=== PATIENT | male | born 1955 | race Caucasian/White ===

== ENCOUNTER 2017-02-22 23:47 | Inpatient (IN) ==
[2017-02-23] MEDS ORDERED: HYDROmorphone 2 MG/1 ML VIAL IV STA ×2 (00:50→02:23)
[2017-02-23] MEDS ORDERED: ONDANSETRON 4 MG/2 ML VIAL IV STA ×2 (00:51→02:26)
[2017-02-23] MEDS ORDERED: ONDANSETRON 4 MG/2 ML VIAL ONE ×2 (00:57→02:25)
[2017-02-23] MEDS ORDERED: HYDROmorphone 2 MG/1 ML VIAL ONE ×2 (00:58→02:25)
[2017-02-23 01:20] LABS: Basophils # 0.3 10*3/uL (0.0-0.2); Basophils % 1.1 % (0.0-0.8); Eosinophils # 0.5 10*3/uL (0.0-0.87); Eosinophils % 1.7 % (0.00-10.9); Hematocrit 54.1 VOL% (42.0-52.0); Hemoglobin 17.1 GM/DL (14.0-18.0); Immature Granulocytes % 1.3 %; Immature Granulocytes Absolute 0.39 #; Lymphocytes # 2.3 10*3/uL (1.4-4.0); Lymphocytes % 7.8 % (21.2-54.2); Mean Corpuscular HGB Conc 31.6 GM/DL (32-36); Mean Corpuscular Hemoglobin 25 PG (27-34); Mean Corpuscular Volume 79.1 FL (87-102); Mean Platelet Volume 11.7 FL (9.6-12.0); Monocytes # 1.1 10*3/uL (0.11-0.8); Monocytes % 3.7 % (1.7-12.7); NRBC # 0.03 10*3/uL; Neutrophils # 24.8 10*3/uL (1.4-7.4); Neutrophils % 84.4 % (38.7-73.9); Red Blood Count 6.84 MC/CUMM (3.8-5.5); Red Cell Distribution Width 19.5 % (9.3-17.3); White Blood Count 29.4 T/CUMM (4-12)
[2017-02-23 01:25] LABS: Lactic Acid 2.3 MMOL/L (0.4-2.0)
[2017-02-23 01:26] LABS: Albumin 3.6 G/DL (3.4-5.0); Bilirubin,Total 1.6 MG/DL (0.2-1.0); Calcium 9.7 MG/DL (8.5-10.1); Osmolality,Calculated 261.1 MOS/KG (273-304); Potassium 4.7 MMOL/L (3.5-5.1); Total Protein 7.3 G/DL (6.4-8.3)
[2017-02-23] MEDS ORDERED: SODIUM CHLORIDE 0.9% 2,000 ML IV STA (01:36)
[2017-02-23 01:45] LABS: Platelet Count 1337 T/CUMM (130-400)
[2017-02-23 02:05] LABS: Apearance,Urine CLEAR (Clear); Bilirubin,Urine Negative (Negative); Blood, Urine Negative (Negative); Glucose,Urine (UA) Negative (Negative); Ketones,Urine Negative (Negative); Nitrite,Urine Negative (Negative); Protein,Urine Negative; RBC,Urine <1 /HPF (0-4); Squamous Epithelial Cell,Urine Occasional /HPF (0-10); Urine Color Yellow (Yellow); Urine Specific Gravity 1.004 (1.001-1.035); Urine Urobilinogen < 2.0 EU/DL (0.2-1.0); WBC,Urine 2 /HPF (0-6)
[2017-02-23] MEDS ORDERED: metroNIDAZOLE INJ 500 MG in PREMIX 1 EACH IV STA (02:24)
[2017-02-23] MEDS ORDERED: PIPERACILLIN/TAZOBACTAM 2,250 MG in SODIUM CHLORIDE 0.9% 100 ML IV STA (02:24)
[2017-02-23] MEDS ORDERED: ACETAMINOPHEN 325 MG TABLET PO PRN ×2 (02:25→02:34)
[2017-02-23] MEDS ORDERED: ONDANSETRON 4 MG/2 ML VIAL IV PRN ×2 (02:25→13:22)
[2017-02-23] MEDS ORDERED: DEXTROSE 5% LACTATED RINGERS 1,000 ML IV SCH (02:30)
[2017-02-23 02:35] LABS: Band Neutrophils 1 % (0-10); Eosinophils 1 % (0-10); Lymphocytes 6 % (20-55); Platelet Estimate Increased; Segmented Neutrophils 90 % (50-85); Total Cells Counted 100
[2017-02-23] MEDS ORDERED: PIPERACILLIN/TAZOBACTAM 3,375 MG in SODIUM CHLORIDE 0.9% 100 ML IV STA (02:42)
[2017-02-23] MEDS ORDERED: PIPERACILLIN/TAZOBACTAM 3,375 MG VIAL IV ONE (03:01)
[2017-02-23] MEDS ORDERED: SODIUM CHLORIDE 0.9% 100 ML IV ONE (03:01)
[2017-02-23] MEDS ORDERED: metroNIDAZOLE 500 MG/100 ML PREMIX IV ONE (03:03)
[2017-02-23] MEDS: HYDROmorphone 2 MG/1 ML VIAL IV PRN ×3 (06:25→14:49)
--- NOTE | 2017-02-23 06:55 | Ultrasound Report ---
Right upper quadrant ultrasound Indication: Abdominal Pain Findings: The liver is normal in size with diffusely increased echogenicity. The gallbladder has increased density, sludge with suggestion of few calculi. The gallbladder wall thickness is 6.2 mm . The common bile duct measures 3.0 mm. The visualized portion of the pancreas appear within normal limits The right kidney is normal in size and echogenicity and measures 13.2 cm . No free fluid or free air seen. Impression: Fatty liver infiltration. Gallbladder sludge with likely small calculi thickened wall, may indicate cholecystitis. Evidence of abnormality demonstrated. Ultrasound images stored and captured. PROCEDURE INTERPRETED AT [facility] DEPARTMENT OF RADIOLOGY Final Report Signed by: Dr. Gerry Vega
--- NOTE | 2017-02-23 06:59 | CT Report ---
CT chest pulmonary embolism Indication: Chest pain, pleuritic, shortness of breath Comparison: None available Technique: Axial CT imaging of the chest is performed with intravenous contrast. Contrast dose is 80 cc of Omnipaque 350. Findings: No thrombus or other abnormality is identified in the pulmonary arteries or veins. The pulmonary vessel caliber is within normal limits. The heart, mediastinum and great vessels appear within normal limits. There is trace right pleural effusion. There is small amounts of airspace density in both lower lungs slightly greater on the right. Remaining pulmonary parenchyma shows no evidence of airspace disease or abnormal density. No other effusion or pneumothorax is present. Impression: No evidence of pulmonary thromboembolism. Small amounts of basilar lung density to the right greater than left could indicate atelectasis or early pneumonia. Trace right pleural effusion.. This CT exam was performed using one or more the following dose reduction techniques: Automated exposure control, adjustment of the MA and/or KV according to patient size, or use of iterative reconstruction technique. PROCEDURE INTERPRETED AT [facility] DEPARTMENT OF RADIOLOGY Final Report Signed by: Dr. Gerry Vega
--- NOTE | 2017-02-23 07:03 | CT Report ---
CT abdomen pelvis Indication: Abdominal pain, fever chills Comparison: 20 August 2014 Technique: Axial CT imaging of the abdomen and pelvis is performed with intravenous and oral contrast. Contrast dose is 100 cc of Omnipaque 350. Findings: Cardiac and lung bases are within normal limits CT abdomen: The liver spleen pancreas and adrenal glands are normal in size and enhancement. No evidence of focal lesion is demonstrated in these solid organs. Gallbladder wall is thickened Kidneys are normal in size and enhancement. There is bilateral perinephric stranding appear symmetric. No evidence of hydronephrosis or nephrolithiasis is seen. The bowel caliber is normal and no wall thickening or adjacent inflammatory change is seen. No evidence of free fluid or free air is present. Appendix is not identified. CT pelvis: Multiple diverticula are present in the sigmoid colon without evidence of diverticulitis. Otherwise the pelvic bowel appears within normal limits. Bladder shows no evidence of abnormality. The pelvic organs show no evidence of abnormality. Impression: Thickened gallbladder wall, could indicate cholecystitis. This CT exam was performed using one or more the following dose reduction techniques: Automated exposure control, adjustment of the MA and/or KV according to patient size, or use of iterative reconstruction technique. PROCEDURE INTERPRETED AT [facility] DEPARTMENT OF RADIOLOGY Final Report Signed by: Dr. Gerry Vega
[2017-02-23 07:24] LABS: Basophils # 0.2 10*3/uL (0.0-0.2); Basophils % 0.5 % (0.0-0.8); Eosinophils # 0.1 10*3/uL (0.0-0.87); Eosinophils % 0.2 % (0.00-10.9); Hematocrit 51.6 VOL% (42.0-52.0); Hemoglobin 16.2 GM/DL (14.0-18.0); Immature Granulocytes % 1.1 %; Immature Granulocytes Absolute 0.32 #; Lymphocytes # 0.5 10*3/uL (1.4-4.0); Lymphocytes % 1.9 % (21.2-54.2); Mean Corpuscular HGB Conc 31.4 GM/DL (32-36); Mean Corpuscular Hemoglobin 25 PG (27-34); Mean Corpuscular Volume 78.7 FL (87-102); Mean Platelet Volume 11.9 FL (9.6-12.0); Monocytes # 0.7 10*3/uL (0.11-0.8); Monocytes % 2.6 % (1.7-12.7); Neutrophils # 26.2 10*3/uL (1.4-7.4); Neutrophils % 93.7 % (38.7-73.9); Red Blood Count 6.56 MC/CUMM (3.8-5.5); Red Cell Distribution Width 19.1 % (9.3-17.3)
[2017-02-23 07:30] LABS: Platelet Count 1142 T/CUMM (130-400)
[2017-02-23 07:37] LABS: INR 1.2; PT Patient Result 12.4 SECS; Partial Thromboplastin Time 36.2 SECS (0-40)
[2017-02-23 07:49] LABS: Albumin 2.9 G/DL (3.4-5.0); Bilirubin,Total 1.6 MG/DL (0.2-1.0); Calcium 8.5 MG/DL (8.5-10.1); Osmolality,Calculated 263.7 MOS/KG (273-304); Potassium 4.9 MMOL/L (3.5-5.1); Total Protein 6.1 G/DL (6.4-8.3)
[2017-02-23 07:50] LABS: Band Neutrophils 4 % (0-10); Giant Platelets Few; Hypochromasia Slight; Lymphocytes 1 % (20-55); Ovalocytes Slight; Platelet Estimate Increased; Segmented Neutrophils 90 % (50-85); Total Cells Counted 100
--- NOTE | 2017-02-23 08:01 | EKG Report ---
Stationary ECG Study [facility] Test Date: 02/23/2017 7:59:53 AM Pat Name: MITZY SZYMANSKI Department: Room: 339 Gender: M Band Manager: DOLLY : 1955 Requested by: Edward Nuno Order Number: [id number] Reading MD: KUMAR LAZCANO Intervals Leonard Rate: 86 P: 56 WV: 147 QRS: 89 QRSD: 93 T: 16 QT: 359 QTc: 402 Interpretive Statements SINUS RHYTHM Electronically Signed On 02-23-17 14:02:02 CDT by KUMAR LAZCANO [email or web address]
[2017-02-23] MEDS: CIPROFLOXACIN INJ 400 MG in PREMIX 1 EACH IV SCH ×2 (08:21→22:25)
[2017-02-23] MEDS ORDERED: PANTOPRAZOLE 40 MG TABLET PO SCH (09:00)
[2017-02-23] MEDS: metroNIDAZOLE INJ 500 MG in PREMIX 1 EACH IV SCH ×3 (10:22→23:32)
[2017-02-23] MEDS: PIPERACILLIN/TAZOBACTAM 3,375 MG in SODIUM CHLORIDE 0.9% 100 ML IV SCH ×2 (11:51→18:14)
[2017-02-23] MEDS ORDERED: ceFAZolin 2,000 MG in PREMIX 1 EACH IV ONE (13:15)
[2017-02-23] MEDS ORDERED: ENOXAPARIN 40 MG/0.4 ML SYRINGE SUBCUT ONE (13:24)
--- NOTE | 2017-02-23 13:27 | General Surg History&Physical ---
Assessment and Plan - Time spent with patient Time spent with patient: Greater than 30 minutes (1) Cholelithiasis and cholecystitis without obstruction Status: Acute Assessment and plan: Impression: Acute cholecystitis with cholelithiasis and thickened gallbladder wall Plan: Set him up for surgery try to get the gallbladder out. The risk and complications have been discussed with him possibility of an open is a possibility on him and he understands this and is willing to undergo the surgery. We will get Dr. García see him because of his polycythemia vera to be sure that were in good shape there. Current Visit: Yes Qualifiers: Cholelithiasis location: gallbladder (2) Polycythemia vera, acquired Status: Acute Assessment and plan: Impression: Long-standing polycythemia vera Plan: We will have Dr. García evaluate and follow with us in this situation. We will give him some Lovenox for his risk of possible increased clotting problems. Current Visit: Yes History of Present Illness Chief complaint: Abdominal pain right upper quadrant and right back 1 week History of present illness: Mr. Espinosa is a 61 year old male white male who generally has been in pretty good health except the fact that he has polycythemia vera that Dr. García is been following. He had some fried stuff last he had the onset of abdominal pain that was worse when he tried to drive around. Started out initially as in his back. He did take some laxatives and had a big bowel movement felt that was a problem but the pain and discomfort persisted. Ended up going to the [facility] [place] some films were done as well as some labs and they told him they did not know what the pain was from and did not recommend any other further treatment. Because he got so bad he came into the emergency room here last night workup here shows a dilated gallbladder with thickened wall on CT possibly some sludge on ultrasound without clear stones. White count was 29,000 last night and 28,000 this morning following use of antibiotics. Will plan to allow him up for surgery get Dr. García to look at him follow with this with his other problems. Patient's liver function studies have been within normal limits which is good at this time. I have indicated to the patient the problem we are dealing with in fact is going need surgery discussed risk complications associated with that. He seems to understand this and understands need for surgery at this point time. I indicated to him that we would look to try to do it laparoscopically but it may be such a bad gallbladder forces us to do an open known him. He understands that and will can begin line things up for more try to get things and situated for his surgery. Allergies Allergy/AdvReac Type Severity Reaction Status Date / Time No Known Allergies Allergy Unverified 02/23/17 00:03 Medical,Surgical,& Family Hx - Medical History Cardio: History of: Hypertension Endocrine: History of: Thyroid Disorder Hematology: History of: Bleeding Problems (Polycythemia Vera) - Family History Family History: Reports;: Family Cancer (Lung CA- Dad), Family Hypertension ( Paternal Grandfather), Family Stroke (Paternal Grandfather), Additional Family History (Dementia- Mother) - Social History Smoking Status: Unknown if ever smoked Frequency of Alcohol Use: None Type of Drug Use: None Lives With:: Spouse Functional capacity: independent ambulation Exam - Constitutional Vitals: Period Temp Pulse Resp BP Sys/Martin Pulse Ox Last 24 Hr 96.9 F-100.3 F 72-97 16-20 103-132/64-88 92-98 General appearance: mild distress - Head Head exam: Present: normal inspection - ENT ENT exam: Present: normal exam - Neck Neck exam: Present: normal inspection - Respiratory Respiratory exam: Present: clear to auscultation bilaterally, rales - Cardiovascular Cardiovascular exam: Present: RRR - GI/Abdominal GI/Abdominal exam: Present: guarding, hypoactive bowel sounds, Maldonado's sign, tenderness, soft - Extremities Exam Extremities exam: Present: normal inspection - Back Exam Back exam: Present: normal inspection - Neurological Exam Neurological exam: Present: alert, oriented X3, CN II-XII intact - Skin Skin exam: Present: normal color, warm, dry 12 point system: reviewed and no additional remarkable complaints except as stated Quality Measures - VTE Contraindication to Pharmacological VTE Prophylaxis: High Risk of Bleeding Results - Labs CBC & BMP: 02/23/17 06:41 02/23/17 06:41 Lab Results: I have reviewed the past 24 hour labs
[2017-02-23] MEDS: DEXTROSE 5% NACL 0.9% 1,000 ML IV SCH (14:45)
[2017-02-24] MEDS: PIPERACILLIN/TAZOBACTAM 3,375 MG in SODIUM CHLORIDE 0.9% 100 ML IV SCH ×2 (02:03→09:14)
[2017-02-24] MEDS ORDERED: ceFAZolin 2,000 MG in PREMIX 1 EACH IV ONE (06:00)
[2017-02-24] MEDS: DEXTROSE 5% NACL 0.9% 1,000 ML IV SCH ×4 (06:03→15:24)
[2017-02-24] MEDS: metroNIDAZOLE INJ 500 MG in PREMIX 1 EACH IV SCH ×3 (06:03→22:14)
[2017-02-24 06:50] LABS: Basophils # 0.2 10*3/uL (0.0-0.2); Basophils % 0.9 % (0.0-0.8); Eosinophils # 0.2 10*3/uL (0.0-0.87); Eosinophils % 0.7 % (0.00-10.9); Hemoglobin 15.5 GM/DL (14.0-18.0); Immature Granulocytes % 1.2 %; Immature Granulocytes Absolute 0.29 #; Lymphocytes # 0.9 10*3/uL (1.4-4.0); Lymphocytes % 3.5 % (21.2-54.2); Mean Corpuscular HGB Conc 31.6 GM/DL (32-36); Mean Corpuscular Hemoglobin 25 PG (27-34); Mean Corpuscular Volume 78.4 FL (87-102); Mean Platelet Volume 11.5 FL (9.6-12.0); Monocytes # 0.7 10*3/uL (0.11-0.8); Monocytes % 2.7 % (1.7-12.7); NRBC # 0.02 10*3/uL; Neutrophils # 22.9 10*3/uL (1.4-7.4); Platelet Count 953 T/CUMM (130-400); Red Blood Count 6.25 MC/CUMM (3.8-5.5); Red Cell Distribution Width 18.7 % (9.3-17.3); White Blood Count 25.1 T/CUMM (4-12)
[2017-02-24 07:00] LABS: INR 1.4; PT Patient Result 14.6 SECS
[2017-02-24 07:13] LABS: Band Neutrophils 5 % (0-10); Giant Platelets Few; Hypochromasia Slight; Lymphocytes 3 % (20-55); Platelet Estimate Increased; Segmented Neutrophils 92 % (50-85); Total Cells Counted 100
--- NOTE | 2017-02-24 07:28 | Oncology Consult Note ---
History of Present Illness Chief complaint: Polycythemia vera History of present illness: Mr. Espinosa is a 61 year old male I have been following for polycythemia vera. His disorder is Uvaldo 2 positive. He has been undergoing phlebotomies and he has been placed on Jakafi 20 mg daily. I last saw him January 13, 2017 at which time his white cell count was 14,490 and he had a hemoglobin of 16.6. His platelet count was 914,000. He also had hyperuricemia with a hemoglobin of 10.0. The patient was actually being followed by Dr. Rubio and I suggested that he return to see him. 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 Recently he has been having GI symptoms including signs and symptoms of cholecystitis and he has documented thickening of the gallbladder. Past medical history: No known allergies. Past medical history is positive for polycythemia, splenomegaly, hypertension, tachycardia, hypothyroidism, insomnia and anxiety. Family history is positive for lung cancer in his father and coronary artery disease in his grandfather Social history: He has never smoked. Review of systems: Positive review of systems includes the following: Constitutional: Positive for to fatigue Endocrine: The patient has had hyperkalemia but he was dehydrated at that time. Integumentary: The patient has been treated for folliculitis or cellulitis of his right knee and apparently had lymphangitis. Musculoskeletal: Positive for arthritis in his knees with knee pain and an apparent infection of his right knee, possibly with a joint effusion. Also positive for gout. However, the patient tells me now that his knees are no longer bothering him. GI: See present illness. Review of systems is otherwise negative. Physical examination: General: The patient is relatively well-developed well-nourished and in no acute distress. Eyes: Normal lids and conjunctivae. ENT: He appears to have some stomatitis but there are no exudates of the tongue or pharynx. Dentition is not good. His hearing appears normal. Neck: His trachea is midline. He has no neck masses. His thyroid is normal. Lungs: His chest moves symmetrically with respiration and there is no tenderness. Breath sounds are slightly coarse throughout.There are no rubs, rales or rhonchi. Cardiovascular: His heart rhythm is regular without murmur, gallop or rub. There is no jugular venous distention, clubbing, cyanosis or edema. Abdomen: Hypoactive bowel sounds. He is tender in the right upper quadrant. I cannot palpate his spleen. Musculoskeletal: There is no focal muscle atrophy or bone or joint deformity. Neurologic: Cranial nerves II through XII are intact. There are no focal neurologic deficits. Nodes: There is no submental, submandibular, cervical, supraclavicular or axillary adenopathy. Skin: I see no significant skin lesions or rashes. Psychiatric: The patient is oriented to time, place, person and situation. Impression: The patient has Uvaldo 2 positive polycythemia vera. He is on Jakafi which can be held temporarily for surgery and resumed after he is no longer n.p.o. I will follow him with you. Thank you for consulting me. We need CBCs and not simply H&H is on this patient when we checked these. Allergies Allergy/AdvReac Type Severity Reaction Status Date / Time No Known Allergies Allergy Unverified 02/23/17 00:03 Medical,Surgical,& Family Hx - Medical History Cardio: History of: Hypertension Endocrine: History of: Thyroid Disorder Hematology: History of: Bleeding Problems (Polycythemia Vera) - Family History Family History: Reports;: Family Cancer (Lung CA- Dad), Family Hypertension ( Paternal Grandfather), Family Stroke (Paternal Grandfather), Additional Family History (Dementia- Mother) - Social History Smoking Status: Unknown if ever smoked Frequency of Alcohol Use: None Type of Drug Use: None Exam - Constitutional Vitals: Period Temp Pulse Resp BP Sys/Martin Pulse Ox Last 24 Hr 96.9 F-98.9 F 56-93 18-20 101-122/57-69 92-96 Results - Labs CBC & BMP: 02/24/17 06:22 02/24/17 06:22 Quality Measures - VTE Contraindication to Pharmacological VTE Prophylaxis: High Risk of Bleeding
[2017-02-24 07:32] LABS: Albumin 2.7 G/DL (3.4-5.0); Bilirubin,Total 2.1 MG/DL (0.2-1.0); Calcium 8.6 MG/DL (8.5-10.1); Osmolality,Calculated 266.2 MOS/KG (273-304); Potassium 4.8 MMOL/L (3.5-5.1); Total Protein 5.7 G/DL (6.4-8.3)
[2017-02-24] MEDS: CIPROFLOXACIN INJ 400 MG in PREMIX 1 EACH IV SCH ×2 (08:06→23:28)
[2017-02-24] MEDS: HYDROmorphone 2 MG/1 ML VIAL IV PRN ×4 (11:28→22:14)
[2017-02-24] MEDS ORDERED: LIDOCAINE 1%/EPI INJ 20 ML VIAL ONE (15:46)
[2017-02-24] MEDS ORDERED: TISSUE ADHESIVE 1 EACH APPLICATOR TOP ONE (15:46)
[2017-02-24 18:35] LABS: Apearance,Urine CLEAR (Clear); Bacteria,Urine Occasional /HPF (Few); Bilirubin,Urine Negative (Negative); Blood, Urine Negative (Negative); Glucose,Urine (UA) Negative (Negative); Ketones,Urine 20 mg/dL (Negative); Mucus,Urine Occasional /LPF (Occasional); Nitrite,Urine Negative (Negative); Protein,Urine 30 MG/DL; RBC,Urine 3 /HPF (0-4); Squamous Epithelial Cell,Urine Occasional /HPF (0-10); Urine Specific Gravity 1.023 (1.001-1.035); Urine Urobilinogen < 2.0 EU/DL (0.2-1.0); WBC,Urine 3 /HPF (0-6)
[2017-02-24 18:36] LABS: Urine Color Dark yellow (Yellow)
--- NOTE | 2017-02-24 18:42 | Operative Note ---
Date of procedure: 02/24/17 Pre-op diagnosis: Acute cholecystitis with cholelithiasis. Post-op diagnosis: same Procedure: Operative note: Preoperative diagnosis: Acute cholecystitis cholelithiasis. Postoperative diagnosis: Same Procedure: Laparoscopic cholecystectomy Surgeon Dr. Nuno Food And Beverage Assistant Candace Andrew, URGENT CARE PHYSICIAN ASSISTANT ACNP Anesthesia General tracheal. With local Brief history: 61-year-old white male with onset of abdominal pain for about a week right upper quadrant radiation to his back with good bit of discomfort especially when he moves around. Came in with elevated white count but the patient also has polycythemia vera that Dr. García is been following. We put him on IV fluids and IV antibiotics like to bring the surgery at this time to get this area out since his CT scan showed thickened dilated gallbladder and ultrasound was primarily related to sludge. Liver function studies were essentially normal. Procedure: With patient prepped and draped in a sterile fashion timeout and antibiotics completed approaches area of the abdomen. Like to go above the umbilicus where we infiltrated local anesthetic. Made incision through the skin subtenons tissue carefully dissected down to the fascia and incised that with a knife. Easily enter the peritoneal cavity under direct vision placed a 11 mm trocar in and instilled 3 L of CO2 in the abdomen. Put her scope in what we saw was adhesions stuck up to the anterior abdominal wall at the level of the gallbladder make it difficult to get a clear window to put the other trochars N. I was able go ahead and put in the epigastric 11 mm trocar under direct vision without problems. I then was able take the dissector and suite the adhesions and the inflammatory process away from the abdominal wall. This they gave us a window to put in the other 5 mm trochars at the anterior axillary midclavicular line. There was some purulent material where this omentum had been stuck to the gallbladder and we cultured some of that took some tissue out for culture also. Once we did that we could see the gallbladder was inflamed at the top and taken all way through. I was able to get a grasper onto the gallbladder and lifted up and had the peel-away large amount of thickened omental tissue away from the underside of the gallbladder including portion of the colon. This allowed me get to the infundibulum were grasped and lifted it up. The area of the ducts were thickened at this time had to do some careful dissection in order care determine where the ducts were. I was finally able to get into the area of the cystic duct and begin to get a little dissection around the underside of it. Unfortunately the gallbladder tore had some spillage of bile and large number of stones we had to suck out at this time. I was able get control again and working this area. I want to get a cholangiogram but could never get a good clear window towards the cystic duct at this point. I could not tell good length of it at this time to the inflammation. I was able to get around to my normal medium clips would not go across this. At that point I had put a 12 mm trocar in the epigastric area and use large clips to get across the cystic duct be sure that I was completely across it and fired it. I did not think I can safely do a cholangiogram at this point. I could clearly see the cystic duct that we had divided with the scissors at this time. With that completed then I was able dissected out the cystic artery and placed 3 clips across it proximally and then 1 clip distally. I then divided the the artery. I then begin to take the gallbladder out by incising peritoneal attachments anteriorly and posteriorly but it was thickened and hard to get out of the liver bed at this time. We were able to slowly dissected out with a little bit of a liver injury at the upper part. Once I had it completely free from the liver I was able put it in an Endo Catch bag and bring it out through the umbilical port. Once a gallbladder out went back in washed and cleaned out above and below the liver and use light cording for controlling bleeding. At that point I felt is important to the amount of inflammation to leave a drain in this area. We put a #10 Nishant-Rodriguez laid on the liver brought out through the lateral port. With that I then removed our other trochars and I closed the epigastric port interrupted 0 Monocryl suture we closed the umbilical port with interrupted 0 Monocryl suture. With those closed we then closed the subtenons tissue with 3-0 Vicryl with skin clips in the skin and secured the drain with 3-0 nylon. Patient was taken recovery room. Estimated blood loss 30 cc Sponge count correct 2 Drains one #10 Nishant-Rodriguez Complications none Condition stable satisfactory Anesthesia: GETA, local (0.25% Marcaine mixed [id number] 1% Xylocaine plain) Surgeon / Physician: Edward Nuno Food And Beverage Assistant: Candace Andrew Estimated blood loss: other (30 cc) Specimens: other (Peritoneal fluid culture and gallbladder) Condition: stable Disposition: floor Results - Labs CBC & BMP: 02/24/17 06:22 02/24/17 06:22
--- NOTE | 2017-02-24 18:48 | Anesthesia Post-Op ---
Anesthesia Post OP - Post Ansesthetic Evaluation Patient seen in post op: Yes Resp: within normal limits CV: within normal limits Mental: within normal limits Temp: within normal limits [id number]: within normal limits Nausea and Vomiting: within normal limits Pain: within normal limits
[2017-02-24] MEDS ORDERED: SEVOFLURANE 1 UNIT/15 MINUTE INH ONE (18:51)
[2017-02-24] MEDS ORDERED: PROPOFOL 200 MG/20 ML VIAL IV ONE (18:51)
[2017-02-24] MEDS ORDERED: NEOSTIGMINE 10 MG/10 ML VIAL ONE (18:52)
[2017-02-24] MEDS ORDERED: fentaNYL 100 MCG/2 ML VIAL ONE (18:52)
[2017-02-24] MEDS ORDERED: ROCURONIUM 100 MG/10 ML VIAL IV ONE (18:52)
[2017-02-24] MEDS ORDERED: GLYCOPYRROLATE 0.4 MG/2 ML VIAL ONE (18:52)
[2017-02-24] MEDS ORDERED: MIDAZOLAM 2 MG/2 ML VIAL ONE (18:52)
[2017-02-24] MEDS ORDERED: KETOROLAC 30 MG/1 ML VIAL ONE (18:52)
[2017-02-24] MEDS ORDERED: LACTATED RINGERS 1,000 ML IV ONE (18:52)
[2017-02-24] MEDS: KETOROLAC 15 MG/1 ML VIAL IV SCH (20:47)
[2017-02-24] MEDS: ALUMINUM/MAGNES/SIMETH MAX STR 30 ML UDCUP PO PRN (20:48)
[2017-02-24 21:42] LABS: Hematocrit 48.7 VOL% (42.0-52.0); Hemoglobin 15.3 GM/DL (14.0-18.0)
[2017-02-25] MEDS: ceFAZolin 2,000 MG in PREMIX 1 EACH IV SCH ×2 (00:35→08:00)
[2017-02-25] MEDS: DEXTROSE 5% NACL 0.9% 1,000 ML IV SCH ×4 (00:35→18:00)
[2017-02-25] MEDS: KETOROLAC 15 MG/1 ML VIAL IV SCH ×5 (00:38→23:41)
[2017-02-25] MEDS: PIPERACILLIN/TAZOBACTAM 3,375 MG in SODIUM CHLORIDE 0.9% 100 ML IV SCH ×3 (01:56→16:44)
[2017-02-25] MEDS: HYDROmorphone 2 MG/1 ML VIAL IV PRN ×5 (02:03→21:13)
[2017-02-25 05:43] LABS: Basophils # 0.1 10*3/uL (0.0-0.2); Basophils % 0.6 % (0.0-0.8); Eosinophils % 0.2 % (0.00-10.9); Hematocrit 47.2 VOL% (42.0-52.0); Hemoglobin 14.7 GM/DL (14.0-18.0); Immature Granulocytes % 1.7 %; Immature Granulocytes Absolute 0.37 #; Lymphocytes # 0.8 10*3/uL (1.4-4.0); Lymphocytes % 3.7 % (21.2-54.2); Mean Corpuscular HGB Conc 31.1 GM/DL (32-36); Mean Corpuscular Hemoglobin 25 PG (27-34); Mean Corpuscular Volume 79.2 FL (87-102); Mean Platelet Volume 11.4 FL (9.6-12.0); Monocytes # 0.6 10*3/uL (0.11-0.8); Monocytes % 2.9 % (1.7-12.7); Neutrophils % 90.9 % (38.7-73.9); Platelet Count 927 T/CUMM (130-400); Red Blood Count 5.96 MC/CUMM (3.8-5.5); Red Cell Distribution Width 18.6 % (9.3-17.3)
[2017-02-25] MEDS: metroNIDAZOLE INJ 500 MG in PREMIX 1 EACH IV SCH ×5 (06:11→23:41)
[2017-02-25 06:12] LABS: Albumin 2.3 G/DL (3.4-5.0); Bilirubin,Total 1.1 MG/DL (0.2-1.0); Calcium 7.8 MG/DL (8.5-10.1); Total Protein 5.1 G/DL (6.4-8.3)
[2017-02-25 06:13] LABS: Osmolality,Calculated 269.1 MOS/KG (273-304); Potassium 4.4 MMOL/L (3.5-5.1)
[2017-02-25 06:21] LABS: Band Neutrophils 4 % (0-10); Hypochromasia 1+; Lymphocytes 6 % (20-55); Platelet Estimate Increased; Polychromasia Slight; Segmented Neutrophils 84 % (50-85); Total Cells Counted 100
[2017-02-25] MEDS: ALUMINUM/MAGNES/SIMETH MAX STR 30 ML UDCUP PO PRN (06:29)
[2017-02-25] MEDS ORDERED: ENOXAPARIN 40 MG/0.4 ML SYRINGE ONE (07:16)
[2017-02-25] MEDS: ENOXAPARIN 40 MG/0.4 ML SYRINGE SUBCUT SCH (07:59)
[2017-02-25] MEDS: PANTOPRAZOLE 40 MG TABLET PO SCH (07:59)
--- NOTE | 2017-02-25 09:12 | Oncology Progress Note ---
Oncology Subjective PN Interval history: Mr. kapoor underwent cholecystectomy yesterday. Lab work today includes a white cell count of 22,000 with a hemoglobin of 14.7 and a platelet count that is down to 927,000. His comprehensive metabolic profile includes a bilirubin has dropped to 1.1 today. From my standpoint he can go home anytime now and should return to the care of Dr. Rubio. I have instructed him to resume Jakafi on discharge. I will sign off. Thanks. Exam - Constitutional Vitals: Period Temp Pulse Resp BP Sys/Martin Pulse Ox Last 24 Hr 97.9 F-100.3 F 72-94 16-20 120-166/68-98 91-99 Results - Labs CBC & BMP: 02/25/17 04:59 02/25/17 04:59 Quality Measures - VTE Contraindication to Pharmacological VTE Prophylaxis: High Risk of Bleeding
--- NOTE | 2017-02-25 09:29 | General Surgery Progress Note ---
Assessment and Plan - Time spent with patient Time spent with patient: Less than 30 minutes (1) Cholelithiasis and cholecystitis without obstruction Status: Acute Assessment and plan: Impression: Acute cholecystitis with cholelithiasis and thickened gallbladder wall Plan: Set him up for surgery try to get the gallbladder out. The risk and complications have been discussed with him possibility of an open is a possibility on him and he understands this and is willing to undergo the surgery. We will get Dr. García see him because of his polycythemia vera to be sure that were in good shape there. 02/25/2017 Patient is now postop from his cholecystectomy which was a difficult removal with some tearing of the gallbladder and spillage of bile contents. He is generally doing fairly well his white count is down 22,000 and is crits 43 today. As of the labs looking good shape at this point. He is having little distention and discomfort associated probably with irritation from the bile spillage. EFFIE drainage is decreasing and looks in good shape at this point. He is not able to eat at this time is tolerating some liquids. Will get him moving and try to get him more functional and see if this will improve the bowel function at this time. Have cultures pending on what we got out of the abdomen at this point time and the drainage though is decreasing will probably have to remain another 2-3 days. Current Visit: Yes Qualifiers: Cholelithiasis location: gallbladder (2) Polycythemia vera, acquired Status: Acute Assessment and plan: Impression: Long-standing polycythemia vera Plan: We will have Dr. García evaluate and follow with us in this situation. We will give him some Lovenox for his risk of possible increased clotting problems. Current Visit: Yes Subjective Patient reports: Present: feels better, tolerating liquids well, no bowel movement, afebrile, other (Has a little problem with some distention.) Exam - Constitutional Vitals: Period Temp Pulse Resp BP Sys/Martni Pulse Ox Last 24 Hr 97.9 F-100.3 F 72-94 16-20 120-166/68-98 91-99 General appearance: mild distress - Head Head exam: Present: normal inspection - ENT ENT exam: Present: normal exam - Neck Neck exam: Present: normal inspection - Respiratory Respiratory exam: Present: rales, rhonchi - Cardiovascular Cardiovascular exam: Present: RRR - GI/Abdominal GI/Abdominal exam: Present: distended, hypoactive bowel sounds, tenderness ( Mild diffuse discomfort) - Extremities Exam Extremities exam: Present: normal inspection - Back Exam Back exam: Present: normal inspection - Neurological Exam Neurological exam: Present: alert, oriented X3, CN II-XII intact - Skin Skin exam: Present: normal color, warm, dry Results - Labs CBC & BMP: 02/25/17 04:59 02/25/17 04:59 Lab Results: I have reviewed the past 24 hour labs Quality Measures - VTE Contraindication to Pharmacological VTE Prophylaxis: High Risk of Bleeding
[2017-02-25] MEDS: CIPROFLOXACIN INJ 400 MG in PREMIX 1 EACH IV SCH (11:57)
[2017-02-25] MEDS: NYSTATIN 500,000 UNIT/5 ML UDCUP SWISH/SWAL PRN ×2 (12:16→16:44)
[2017-02-25] MEDS: METHOCARBAMOL 500 MG TABLET PO SCH (20:43)
[2017-02-26] MEDS: PIPERACILLIN/TAZOBACTAM 3,375 MG in SODIUM CHLORIDE 0.9% 100 ML IV SCH ×3 (00:48→16:19)
[2017-02-26] MEDS: HYDROmorphone 2 MG/1 ML VIAL IV PRN (04:36)
[2017-02-26] MEDS: DEXTROSE 5% NACL 0.9% 1,000 ML IV SCH ×4 (04:38→16:19)
[2017-02-26 05:17] LABS: Basophils # 0.1 10*3/uL (0.0-0.2); Basophils % 0.8 % (0.0-0.8); Eosinophils # 0.3 10*3/uL (0.0-0.87); Eosinophils % 1.7 % (0.00-10.9); Hematocrit 46.1 VOL% (42.0-52.0); Hemoglobin 14.7 GM/DL (14.0-18.0); Immature Granulocytes Absolute 0.36 #; Lymphocytes # 0.8 10*3/uL (1.4-4.0); Lymphocytes % 4.6 % (21.2-54.2); Mean Corpuscular HGB Conc 31.9 GM/DL (32-36); Mean Corpuscular Hemoglobin 25 PG (27-34); Mean Corpuscular Volume 78.8 FL (87-102); Mean Platelet Volume 11.2 FL (9.6-12.0); Monocytes # 0.7 10*3/uL (0.11-0.8); Monocytes % 3.7 % (1.7-12.7); NRBC # 0.03 10*3/uL; Neutrophils # 15.7 10*3/uL (1.4-7.4); Neutrophils % 87.2 % (38.7-73.9); Platelet Count 865 T/CUMM (130-400); Red Blood Count 5.85 MC/CUMM (3.8-5.5); Red Cell Distribution Width 18.8 % (9.3-17.3)
[2017-02-26 05:51] LABS: Albumin 2.2 G/DL (3.4-5.0); Bilirubin,Total 1.4 MG/DL (0.2-1.0); Calcium 8.1 MG/DL (8.5-10.1); Osmolality,Calculated 268.1 MOS/KG (273-304); Potassium 4.4 MMOL/L (3.5-5.1); Total Protein 4.8 G/DL (6.4-8.3)
[2017-02-26 06:15] LABS: Band Neutrophils 5 % (0-10); Hypochromasia 1+; Lymphocytes 3 % (20-55); Microcytosis 1+; Nucleated Red Blood Cells 1 (0-5); Platelet Estimate Increased; Segmented Neutrophils 85 % (50-85); Total Cells Counted 100
[2017-02-26] MEDS: LEVOTHYROXINE 75 MCG TABLET PO SCH (06:23)
[2017-02-26] MEDS: metroNIDAZOLE INJ 500 MG in PREMIX 1 EACH IV SCH ×4 (06:24→23:58)
[2017-02-26] MEDS: KETOROLAC 15 MG/1 ML VIAL IV SCH ×4 (06:24→23:58)
[2017-02-26] MEDS: LISINOPRIL/HCTZ 20-12.5 MG TABLET PO SCH (08:37)
[2017-02-26] MEDS: METHOCARBAMOL 500 MG TABLET PO SCH ×2 (08:37→21:20)
[2017-02-26] MEDS: PANTOPRAZOLE 40 MG TABLET PO SCH (08:37)
[2017-02-26] MEDS: ENOXAPARIN 40 MG/0.4 ML SYRINGE SUBCUT SCH (08:38)
--- NOTE | 2017-02-26 11:01 | General Surgery Progress Note ---
Assessment and Plan - Time spent with patient Time spent with patient: Less than 30 minutes (1) Cholelithiasis and cholecystitis without obstruction Status: Acute Assessment and plan: 02/26/17 Stable post op laparoscopic cholecystectomy. We will plan to continue antibiotics today and have him ambulate in the halls. If he continues to do well consider removing the EFFIE drain and discharge tomorrow. Current Visit: Yes Qualifiers: Cholelithiasis location: gallbladder (2) Polycythemia vera, acquired Status: Acute Assessment and plan: 02/26/17 Polycythemia vera, stable. Platelets now 865. Appreciate Dr García's recommendations. Continue Lovenox while here. We'll have him resume his previous meds upon d/c. Current Visit: Yes Subjective Patient reports: Present: feels better, pain is less, tolerating a regular diet , bowel movement. Absent: nausea, vomiting, shortness of breath Exam - Constitutional Vitals: Period Temp Pulse Resp BP Sys/Martin Pulse Ox Last 24 Hr 97.0 F-99.3 F 77-100 16-20 109-140/60-80 95-97 General appearance: no acute distress - Respiratory Respiratory exam: Present: clear to auscultation bilaterally - Cardiovascular Cardiovascular exam: Present: RRR - GI/Abdominal GI/Abdominal exam: Present: hypoactive bowel sounds, other (Incisions clean and dry without unusual redness or drainage. ) Results - Labs CBC & BMP: 02/26/17 04:51 02/26/17 04:51 Lab Results: I have reviewed the past 24 hour labs Quality Measures - VTE Contraindication to Pharmacological VTE Prophylaxis: High Risk of Bleeding
[2017-02-27] MEDS: PIPERACILLIN/TAZOBACTAM 3,375 MG in SODIUM CHLORIDE 0.9% 100 ML IV SCH ×3 (01:19→16:02)
[2017-02-27 02:30] LABS: Basophils # 0.1 10*3/uL (0.0-0.2); Basophils % 0.8 % (0.0-0.8); Eosinophils # 0.4 10*3/uL (0.0-0.87); Eosinophils % 2.9 % (0.00-10.9); Hematocrit 44.2 VOL% (42.0-52.0); Hemoglobin 13.4 GM/DL (14.0-18.0); Immature Granulocytes % 2.9 %; Immature Granulocytes Absolute 0.43 #; Lymphocytes % 7.1 % (21.2-54.2); Mean Corpuscular HGB Conc 30.3 GM/DL (32-36); Mean Corpuscular Hemoglobin 24 PG (27-34); Mean Corpuscular Volume 79.4 FL (87-102); Mean Platelet Volume 11.3 FL (9.6-12.0); Monocytes # 0.6 10*3/uL (0.11-0.8); Monocytes % 4.3 % (1.7-12.7); NRBC # 0.02 10*3/uL; Neutrophils # 12.1 10*3/uL (1.4-7.4); Platelet Count 882 T/CUMM (130-400); Red Blood Count 5.57 MC/CUMM (3.8-5.5); Red Cell Distribution Width 18.6 % (9.3-17.3); White Blood Count 14.7 T/CUMM (4-12)
[2017-02-27 02:55] LABS: Albumin 2.1 G/DL (3.4-5.0); Bilirubin,Total 1.2 MG/DL (0.2-1.0); Calcium 7.7 MG/DL (8.5-10.1); Osmolality,Calculated 272.7 MOS/KG (273-304); Potassium 4.1 MMOL/L (3.5-5.1); Total Protein 4.6 G/DL (6.4-8.3)
[2017-02-27 06:03] LABS: Band Neutrophils 5 % (0-10); Eosinophils 1 % (0-10); Lymphocytes 8 % (20-55); Platelet Estimate Increased; Segmented Neutrophils 81 % (50-85); Total Cells Counted 100
[2017-02-27] MEDS: metroNIDAZOLE INJ 500 MG in PREMIX 1 EACH IV SCH ×4 (06:25→23:57)
[2017-02-27] MEDS: KETOROLAC 15 MG/1 ML VIAL IV SCH ×2 (06:25→11:29)
[2017-02-27] MEDS: LEVOTHYROXINE 75 MCG TABLET PO SCH (06:25)
[2017-02-27] MEDS: DEXTROSE 5% NACL 0.9% 1,000 ML IV SCH ×4 (07:33→21:10)
[2017-02-27] MEDS: PANTOPRAZOLE 40 MG TABLET PO SCH (08:21)
[2017-02-27] MEDS: LISINOPRIL/HCTZ 20-12.5 MG TABLET PO SCH (08:21)
[2017-02-27] MEDS: METHOCARBAMOL 500 MG TABLET PO SCH ×2 (08:21→21:10)
[2017-02-27] MEDS: ENOXAPARIN 40 MG/0.4 ML SYRINGE SUBCUT SCH (08:21)
--- NOTE | 2017-02-27 14:09 | General Surgery Progress Note ---
Assessment and Plan (1) Cholelithiasis and cholecystitis without obstruction Status: Acute Assessment and plan: Impression: Acute cholecystitis with cholelithiasis and thickened gallbladder wall Plan: Set him up for surgery try to get the gallbladder out. The risk and complications have been discussed with him possibility of an open is a possibility on him and he understands this and is willing to undergo the surgery. We will get Dr. García see him because of his polycythemia vera to be sure that were in good shape there. 02/25/2017 Patient is now postop from his cholecystectomy which was a difficult removal with some tearing of the gallbladder and spillage of bile contents. He is generally doing fairly well his white count is down 22,000 and is crits 43 today. As of the labs looking good shape at this point. He is having little distention and discomfort associated probably with irritation from the bile spillage. EFFIE drainage is decreasing and looks in good shape at this point. He is not able to eat at this time is tolerating some liquids. Will get him moving and try to get him more functional and see if this will improve the bowel function at this time. Have cultures pending on what we got out of the abdomen at this point time and the drainage though is decreasing will probably have to remain another 2-3 days. 02/27/2017 Patient generally looks pretty good although had a low-grade temp last night about 100.2. His abdomen looks soft mildly distended hypoactive bowel sounds present. He describes having several bowel movements. His. He has been tolerating some solid food at this time. So far he seems to be progressing nicely white count coming down hematocrit being 43. I would like to keep him another 24 hours get a chest x-ray just because of the low-grade temperatures and I do worry things are coming from at this time. EFFIE drainage is decreasing although it still has some periods where it seems like a fairly good amount of drainage of the straw-colored nature. Will pull the drain before he leaves but keep him tonight and recheck things in the morning see if he is any improvement there and see what his symptoms basically do at this time. Current Visit: Yes Qualifiers: Cholelithiasis location: gallbladder (2) Polycythemia vera, acquired Status: Acute Assessment and plan: Impression: Long-standing polycythemia vera Plan: We will have Dr. García evaluate and follow with us in this situation. We will give him some Lovenox for his risk of possible increased clotting problems. Current Visit: Yes Subjective Patient reports: Present: no new complaints, pain is less, bowel movement, afebrile, fever (Low-grade temp of 100 in the night.) Exam - Constitutional Vitals: Period Temp Pulse Resp BP Sys/Martin Pulse Ox Last 24 Hr 97.6 F-100.0 F 66-80 16-20 102-138/63-73 96-99 General appearance: mild distress - Head Head exam: Present: normal inspection - ENT ENT exam: Present: normal exam - Neck Neck exam: Present: normal inspection - Respiratory Respiratory exam: Present: rales - Cardiovascular Cardiovascular exam: Present: RRR - GI/Abdominal GI/Abdominal exam: Present: hypoactive bowel sounds, soft, other (Incisions clean and dry) - Extremities Exam Extremities exam: Present: normal inspection - Back Exam Back exam: Present: normal inspection - Neurological Exam Neurological exam: Present: alert, oriented X3, altered Results - Labs CBC & BMP: 02/27/17 01:19 02/27/17 01:19 Lab Results: I have reviewed the past 24 hour labs Quality Measures - VTE Contraindication to Pharmacological VTE Prophylaxis: High Risk of Bleeding
--- NOTE | 2017-02-27 16:50 | XRay Report ---
Portable chest Date: 02/27/2017 Clinical history: Post cholecystectomy with fever Comparison: 08/16/2014 Technique: Portable AP sitting chest Findings: The heart is normal in size with uncoiling of the aorta. Minimal relative elevation of the right hemidiaphragm. Progressive atelectasis/infiltration at the lung bases with small pleural effusions. Stable mediastinum with degenerative changes. Impression: Bibasilar atelectasis/infiltration with small pleural effusions. Findings are more pronounced at the right lung base. PROCEDURE INTERPRETED AT [facility] [place] DEPARTMENT OF RADIOLOGY Final Report Signed by: Dr. Spring Gould
[2017-02-28] MEDS: PIPERACILLIN/TAZOBACTAM 3,375 MG in SODIUM CHLORIDE 0.9% 100 ML IV SCH ×3 (01:15→16:57)
[2017-02-28 03:15] LABS: Basophils # 0.2 10*3/uL (0.0-0.2); Basophils % 1.1 % (0.0-0.8); Eosinophils # 0.4 10*3/uL (0.0-0.87); Eosinophils % 2.7 % (0.00-10.9); Hematocrit 43.1 VOL% (42.0-52.0); Hemoglobin 13.3 GM/DL (14.0-18.0); Immature Granulocytes % 4.8 %; Immature Granulocytes Absolute 0.72 #; Lymphocytes # 1.2 10*3/uL (1.4-4.0); Lymphocytes % 8.2 % (21.2-54.2); Mean Corpuscular HGB Conc 30.9 GM/DL (32-36); Mean Corpuscular Hemoglobin 24 PG (27-34); Mean Corpuscular Volume 78.9 FL (87-102); Mean Platelet Volume 11.5 FL (9.6-12.0); Monocytes # 0.6 10*3/uL (0.11-0.8); Monocytes % 4.1 % (1.7-12.7); NRBC # 0.04 10*3/uL; Neutrophils % 79.1 % (38.7-73.9); Platelet Count 981 T/CUMM (130-400); Red Blood Count 5.46 MC/CUMM (3.8-5.5); Red Cell Distribution Width 18.2 % (9.3-17.3); White Blood Count 15.1 T/CUMM (4-12)
[2017-02-28 03:48] LABS: Albumin 2.2 G/DL (3.4-5.0); Bilirubin,Total 0.9 MG/DL (0.2-1.0); Calcium 7.8 MG/DL (8.5-10.1); Osmolality,Calculated 270.7 MOS/KG (273-304); Potassium 4.1 MMOL/L (3.5-5.1); Total Protein 4.7 G/DL (6.4-8.3)
[2017-02-28 04:04] LABS: Band Neutrophils 8 % (0-10); Eosinophils 1 % (0-10); Lymphocytes 11 % (20-55); Total Cells Counted 100
[2017-02-28 04:07] LABS: Platelet Estimate Increased; Polychromasia Few
[2017-02-28 04:09] LABS: Segmented Neutrophils 74 % (50-85)
[2017-02-28] MEDS: metroNIDAZOLE INJ 500 MG in PREMIX 1 EACH IV SCH ×2 (06:04→13:10)
[2017-02-28] MEDS: LEVOTHYROXINE 75 MCG TABLET PO SCH (06:04)
[2017-02-28] MEDS: DEXTROSE 5% NACL 0.9% 1,000 ML IV SCH ×3 (07:50→14:31)
[2017-02-28] MEDS: PANTOPRAZOLE 40 MG TABLET PO SCH (08:43)
[2017-02-28] MEDS: ENOXAPARIN 40 MG/0.4 ML SYRINGE SUBCUT SCH (08:43)
[2017-02-28] MEDS: METHOCARBAMOL 500 MG TABLET PO SCH ×2 (08:43→21:03)
[2017-02-28] MEDS: LISINOPRIL/HCTZ 20-12.5 MG TABLET PO SCH (08:43)
--- NOTE | 2017-02-28 09:54 | Event Note ---
02/28/2017. Patient is afebrile but his chest x-ray did indicate some bilateral atelectatic changes present. This may be the cause for his low-grade temp that was noted at nighttime. Abdomen still seems a little distended bowel sounds are active and he claims to have had some small bowel movements. His EFFIE drainage is minimal and I went ahead and pull that today. Incisions look clean and dry. Does have some bruising from the Lovenox in the right lower quadrant area of the abdominal wall. Generally the patient feels better but did complain of little nausea this morning and those food smelling funny. I will hold him and check him again after lunch and if he is doing well in that he does not have the same symptoms of any nausea then I may consider letting him go home.
--- NOTE | 2017-02-28 13:25 | Event Note ---
02/28/2017 1330 hrs. Have observed the patient today and he remains pretty distended in his abdomen and some fullness. He still has a aversion to food because of odor that he is describing and some sense of nausea but no vomiting. He states that he has had 2 bowel movements 1 large and 2 small ones today but still remains distended. We will get some plain films to see if we can understand what is going on here.
--- NOTE | 2017-02-28 14:17 | XRay Report ---
Exam: XR abdomen 2V Date: 02/28/2017 1:23 PM Comparison: 08/16/2014 Indication: Post.Cholecystectomy with abdominal distention Technique:[Supine and erect abdomen] Findings: Recent cholecystectomy with multiple skin clips noted. Mild gaseous distention of the bowel with air-fluid levels. No definite pneumoperitoneum is identified. Minimal degenerative changes are noted. Impression: Recent cholecystectomy with probable mild postop ileus. Follow-up x-ray may be helpful if symptoms persist. PROCEDURE INTERPRETED AT [facility] DEPARTMENT OF RADIOLOGY Final Report Signed by: Dr. Spring Gould
--- NOTE | 2017-02-28 14:23 | Event Note ---
02/28/2017 1430 hrs. plain films of the abdomen are really unremarkable The gas pattern looks pretty normal and red is just sort of an ileus pattern. He is distended which concerns me a little bit. If he remains so in the morning we can plan to do a CT scan for the possibility of ascites.
[2017-03-01] MEDS: PIPERACILLIN/TAZOBACTAM 3,375 MG in SODIUM CHLORIDE 0.9% 100 ML IV SCH ×2 (00:51→08:11)
[2017-03-01 04:48] LABS: Basophils # 0.2 10*3/uL (0.0-0.2); Eosinophils # 0.3 10*3/uL (0.0-0.87); Eosinophils % 1.5 % (0.00-10.9); Hematocrit 47.1 VOL% (42.0-52.0); Hemoglobin 14.6 GM/DL (14.0-18.0); Immature Granulocytes % 5.3 %; Immature Granulocytes Absolute 1.03 #; Lymphocytes # 1.3 10*3/uL (1.4-4.0); Lymphocytes % 6.6 % (21.2-54.2); Mean Corpuscular Hemoglobin 24 PG (27-34); Mean Corpuscular Volume 78.2 FL (87-102); Mean Platelet Volume 11.3 FL (9.6-12.0); Monocytes # 0.6 10*3/uL (0.11-0.8); Monocytes % 3.2 % (1.7-12.7); NRBC # 0.04 10*3/uL; Neutrophils % 82.4 % (38.7-73.9); Red Blood Count 6.02 MC/CUMM (3.8-5.5); Red Cell Distribution Width 18.9 % (9.3-17.3); White Blood Count 19.5 T/CUMM (4-12)
[2017-03-01 04:59] LABS: Platelet Count 1144 T/CUMM (130-400)
[2017-03-01 05:30] LABS: Albumin 2.3 G/DL (3.4-5.0); Bilirubin,Total 0.8 MG/DL (0.2-1.0); Calcium 8.3 MG/DL (8.5-10.1); Total Protein 5.4 G/DL (6.4-8.3)
[2017-03-01 05:31] LABS: Potassium 4.4 MMOL/L (3.5-5.1)
[2017-03-01 05:44] LABS: Acanthocytes Few; Anisocytosis 1+; Band Neutrophils 4 % (0-10); Eosinophils 2 % (0-10); Lymphocytes 6 % (20-55); Macrocytosis 1+; Metamyelocytes 1 %; Microcytosis Slight; Ovalocytes 1+; Platelet Estimate Increased; Segmented Neutrophils 84 % (50-85); Total Cells Counted 100
[2017-03-01] MEDS: LEVOTHYROXINE 75 MCG TABLET PO SCH (06:19)
[2017-03-01] MEDS: ENOXAPARIN 40 MG/0.4 ML SYRINGE SUBCUT SCH (08:11)
[2017-03-01] MEDS: LISINOPRIL/HCTZ 20-12.5 MG TABLET PO SCH (08:12)
[2017-03-01] MEDS: PANTOPRAZOLE 40 MG TABLET PO SCH (08:12)
[2017-03-01] MEDS: METHOCARBAMOL 500 MG TABLET PO SCH (08:12)
[2017-03-01 11:29] VITALS: BP 150/85
--- NOTE | 2017-03-01 12:30 | Event Note ---
03/01/2017. Patient is clinically better today he has been able to tolerate some food no more nausea is continued to have bowel movements. He is abdomen is much softer with hypoactive bowel sounds present. He appears much improved and possibly could go home today. Will wait until he has finished his lunch and be sure that things go well with that and then possibly consider letting him go home.
--- NOTE | 2017-03-01 13:16 | Discharge Summary ---
Hospital Course - Hospital Course Hospital Course: Discharge summary: Discharge diagnosis: 1. Acute cholecystitis with cholelithiasis 2. Polycythemia vera Procedure: Laparoscopic cholecystectomy Surgeon Dr. Nuno Boiler Repairman Candace Andrew, BROTHEL KEEPER ACNP Apparatus Engineering Technologist Dr. García Brief summary: 61-year-old white male who came in because of persistent abdominal pain primary right upper quadrant. This been going on about 2 weeks and he had been seen a couple times in other ERs that did not seem to think that he had anything of significance there. This persisted and was very tender to him and he finally came to the emergency room here which showed on CT thickened gallbladder wall with ultrasound showing some sludge present. His liver function studies were normal but this appeared to be the source of his an infection and pain and tenderness. We admitted him and put him on some IV antibiotics. He was seen by Dr. García prior surgery because of his polycythemia vera and he felt it was going be okay to move along with surgery. At this point we took him to the operating room where we found a thickened gallbladder wall with minimal adhesions to the anterior part of the abdominal wall with good bit of inflammatory changes present and some drainage. We did culture that as well as finally get the gallbladder out. We were unable to do a cholangiogram but he had a lot of stones present and some spillage at the time during the surgery. We left a drain in for just drainage person because of the spillage of the bilious material and the evidence of possible little abscess formation in the omentum. He did fairly well and had a moderate amount of EFFIE drainage for several days before cut down enough that we can get the drain out. His remains somewhat distended him and his bowels have been slow to progress to where we get him on liquids and then advance into food. He was doing fairly well with little distended the other day and I was concerned that his plain films were okay. He did have a little nausea but he has been having bowel movements. He is improved today and I washed him through to meals and he is tolerated well without problems. Last white count was about 15,000 his his hematocrit was 49 but his platelet count was 1 million in relation to the polycythemia vera. He is much better and improved so we will plan to go ahead and discharge him and follow him up in the office get his clips out. Instructed to him on care and activities at this time. Patient was noted on chest x-ray to have some atelectasis little bit of pleural effusion on the right but otherwise was unremarkable. - Time spent with patient Time with patient DS: Less than 30 minutes Diagnosis - Discharge Diagnosis (1) Cholelithiasis and cholecystitis without obstruction Status: Resolved (2) Polycythemia vera, acquired Status: Chronic Specialty Discharge - Follow Up or Referrals Follow up with: Edward Nuno MD [Physician] - 1 Week Discharge Plan - Discharge Data Disposition: Disch To Home/Self Care Condition at Discharge: Stable Discharge Diet: advance to your usual diet Activity: increase activity as tolerated, no lifting, no prolonged standing, other (May ride in a car and made going downstairs) Hygiene: may shower, other (Remove dressings in order to shower then replaced dressings after the shower) Weight Bearing at Discharge: full weight bearing Driving: not until seen by doctor Contact your physician if you experience:: fever over 101, Nausea/Vomiting, pain uncontrolled by pain medications Wound / Dressing Care Instructions: Wound care to the incisions daily. 1. May shower and wash the wounds with soap of choice. 2. After shower pat dry. 3. Apply Band-Aids to cover each incision - Discharge Medications New Alum/Mag/Simeth Max Str Liquid [Mylanta Max Strength Liquid] 30 ml PO Q4H PRN PRN Reason: Dyspepsia Doxycycline Hyclate Cap [Vibramycin Cap] 100 mg PO BID #14 capsule HYDROcodone/ACETAMIN 5-325 [Hagaman 5-325] 1 tablet PO Q6H PRN #20 tablet PRN Reason: Pain Moderate (4-7) Acetaminophen Tab [Tylenol Tab] 650 mg PO Q6H PRN tablet PRN Reason: Pain Mild (1-3) And/Or Fever Continue Methocarbamol Tab [Robaxin Tab] 500 mg PO BID Lisinopril/Hydrochlorothiazide [Lisinopril-Hctz 20-12.5 mg Tab] 1 each PO DAILY Levothyroxine Tab [Synthroid Tab] 75 mcg PO DAILY@0700 Aspirin 325 mg PO DAILY - Follow Up or Referral Follow Up: Edward Nuno MD [Physician] - - Forms/Instructions Instructions: Laparoscopic Cholecystectomy (DC) Exam - Constitutional Vitals: Period Temp Pulse Resp BP Sys/Martin Pulse Ox Last 24 Hr 97.6 F-99.0 F 67-79 18-20 130-150/84-91 97-98 General appearance: no acute distress - Head Head exam: Present: normal inspection - ENT ENT exam: Present: normal exam - Neck Neck exam: Present: normal inspection - Respiratory Respiratory exam: Present: rales - Cardiovascular Cardiovascular exam: Present: regular rate and rhythm - GI/Abdominal GI/Abdominal exam: Present: distended (Mild but less), hypoactive bowel sounds, tenderness (About the incision), soft - Extremities Exam Extremities exam: Present: normal inspection - Back Exam Back exam: Present: normal inspection - Neurological Exam Neurological exam: Present: alert, oriented X3, CN II-XII intact - Psychiatric Psychiatric exam: Present: normal affect, normal mood, anxious - Skin Skin exam: Present: normal color, warm, dry Discharge Results Procedures and tests throughout hospitalization: Pending Orders 03/02/17 04:00 Comp Blood Count Auto Diff IN AM Comprehensive Metabolic Panel IN AM Labs on day of discharge: Labs from last 24 hours 03/01/17 03/01/17 03:53 03:53 WBC 19.5 H RBC 6.02 H Hgb 14.6 Hct 47.1 MCV 78.2 L MCH 24 L MCHC 31.0 L RDW 18.9 H Plt Count 1144 H* MPV 11.3 Neut % (Auto) 82.4 H Lymph % (Auto) 6.6 L [place] % (Auto) 3.2 Eos % (Auto) 1.5 Baso % (Auto) 1.0 H Neut # (Auto) 16.0 H Lymph # (Auto) 1.3 L [place] # (Auto) 0.6 Eos # (Auto) 0.3 Baso # (Auto) 0.2 Total Counted 100 Immature Gran % 5.3 Nucleated RBC % 0.2 Immature Gran # 1.03 Segmented Neutrophils 84 Band Neutrophils 4 Lymphocytes 6 L Monocytes 3 Eosinophils 2 Metamyelocytes 1 Nucleated RBCs # 0.04 Platelet Estimate Increased Immature Plt Fraction 0.0 Anisocytosis 1+ Microcytosis Slight Macrocytosis 1+ Ovalocytes 1+ Acanthocytes (Spur) Few Sodium 136 Potassium 4.4 Chloride 100 Carbon Dioxide 26 Anion Gap 14.4 BUN 3 L Creatinine 0.50 L GFR Calculation 135 BUN/Creatinine Ratio 6.00 Glucose 89 Calculated Osmolality 267.0 L Calcium 8.3 L Total Bilirubin 0.80 AST 142 H ALT 86 H Alkaline Phosphatase 117 Total Protein 5.4 L Albumin 2.3 L Globulin 3.1 Albumin/Globulin Ratio 0.7 L DS: Provider Date of admission: 02/23/17 02:34 Primary care physician: . No PCP Attending physician on admission: Edward Nuno MD Consults: 02/23/17 13:16 Consult to Anesthesiology [CONS] Routine Consulting Provider: Reason for Anesthesiology: Pre-op Clearance 02/23/17 13:23 Consult to Physician [CONS] Routine Comment: Consulting Provider: Rodolfo García Consulting Provider Notified: Yes When should Consulting Provider be notified: Now Person Notified: ollie jurgen Date Notified: 02/23/17 Time Notified: 13:58 Consult Notification Comment: Patient known to you who has polycythemia vera and you have been following about this problem. Please evaluate since he did undergo surgery and follow-up without postop. 02/25/17 08:47 Consult to Physical Therapy [CONS] Routine Reason for Physical Therapy: Evaluate and Treat Ambulation Weakness Start Therapy: Today Discharging clinician: Edward Nuno MD Expected date of discharge: 03/01/17
--- NOTE | 2017-03-01 13:22 | Pathology Report from [facility] ---
[facility] ACCESSION # : [id number] PATIENT NAME : Víctor Espinosa ORDERING DR : COLLEEN MÉNDEZ MD CLINICAL HX: Cholecystitis POST-OP DX: Same SPECIMEN INFO: Gallbladder GROSS DESCRIPTION: The specimen is received in formalin labeled VÍCTOR ESPINOSA and consists of an intact but focally opened gallbladder measuring 9.0 x 3.7 cm. The serosa is white-pearce and fatty. The gallbladder has a thickness up to 0.5 cm. The mucosa is granular, focally erythematous and pearce. There is areas of focal ulceration present. No stones identified. Data Entry Specialist sections submitted in on cassette. DIAGNOSIS FOR VÍCTOR Mcgill FILES: GALLBLADDER, CHOLECYSTECTOMY: Acute and chronic cholecystitis with mucosal ulceration. COLLECTED DATE: 02/25/2017 [facility] REPORT DATE: 02/26/2017 ELECTRONICALLY SIGNED BY: John Myrick M.D. 02/26/2017 - 9:48:32 [facility]TDD
== END 2017-03-01 15:35 | disposition home or self-care (01) | DRG 419 ==
LOC: N.ED 23:47 → N.EDINP 02-23 02:34 → N.3E 02-23 03:15
PROVIDERS: ADMIT Specialist; ATTEND Specialist
PROC: LAPCHOL (2017-02-24 12:50)